=== PATIENT | female | born 1945 | race Caucasian/White ===

== ENCOUNTER → 2016-09-10 | Outpatient (CLI) | payer MEDICARE, BC ==
[~2016-09-10] MED LIST: ADVAIR DIS14 PUFF/I1 INH; ASPIRIN325 MG PO; BYSTOLIC10 MG PO; COZAAR100 MG PO; HYDREA500 MG PO; LIVALO4 MG PO; NORVASC10 MG PO; PROAIR HFA8.5 GM INH; SPIRIVA RESPIMAT4 GM INH
== END | disposition short-term general hospital (02) ==
LOC: CLONCO 10:40
DX: C94.6 Myelodysplastic disease, not elsewhere classified (principal); D75.1 Secondary polycythemia; I10 Essential (primary) hypertension; Z79.82 Long term (current) use of aspirin; Z79.899 Other long term (current) drug therapy